=== PATIENT | female | born 1975 | race Caucasian/White ===

== ENCOUNTER 2020-05-08 16:09 | Inpatient (IN) ==
[2020-05-08] MEDS ORDERED: hydrALAZINE 20 MG/1 ML VIAL IV PRN (18:13)
[2020-05-08] MEDS ORDERED: ZALEPLON 5 MG CAPSULE PO PRN (18:13)
[2020-05-08] MEDS ORDERED: DEXTROSE 50% 25 GM/50 ML VIAL IV PRN (18:13)
[2020-05-08] MEDS ORDERED: ACETAMINOPHEN 325 MG TABLET PO PRN (18:13)
[2020-05-08] MEDS ORDERED: NICOTINE 21 MG/24 HR PATCH TRANSDERM PRN (18:13)
[2020-05-08] MEDS ORDERED: guaiFENesin/DM ER 600-30 MG TABLET PO PRN (18:13)
[2020-05-08] MEDS ORDERED: diphenhydrAMINE CAP 25 MG CAPSULE PO PRN (18:13)
[2020-05-08] MEDS ORDERED: PROMETHAZINE 25 MG/1 ML VIAL IM PRN (18:13)
[2020-05-08] MEDS ORDERED: GLUCAGON 1 MG VIAL IM PRN (18:13)
[2020-05-08 18:58] LABS: Basophils # 0.1 10*3/uL (0.0-0.2); Basophils % 1.3 % (0.0-0.8); Eosinophils # 0.5 10*3/uL (0.0-0.87); Eosinophils % 6.2 % (0.00-10.9); Hematocrit 34.3 VOL% (35.7-47.0); Hemoglobin 10.6 GM/DL (12.0-16.0); Immature Granulocytes % 0.3 %; Immature Granulocytes Absolute 0.02 #; Lymphocytes # 1.2 10*3/uL (1.4-4.0); Lymphocytes % 16.2 % (21.3-54.2); Mean Corpuscular HGB Conc 30.9 GM/DL (32-36); Mean Platelet Volume 9.6 FL (9.6-12.0); Monocytes % 6.2 % (1.7-12.7); Neutrophils % 69.8 % (38.7-73.9); Platelet Count 157 T/CUMM (130-400); Red Cell Distribution Width 14.5 % (9.3-17.3); White Blood Count 7.5 T/CUMM (4-12)
[2020-05-08 19:18] LABS: Calcium 9.2 MG/DL (8.5-10.1); Osmolality,Calculated 271.2 MOS/KG (273-304)
[2020-05-08 19:26] LABS: Alanine Aminotransferase < 6 U/L (13-56); Albumin 3.2 G/DL (3.4-5.0); Alkaline Phosphatase 116 U/L (45-117); Aspartate Amino Transferase 10 U/L (0-37); Bilirubin,Indirect 0.2 MG/DL (0.0-1.0); Total Protein 7.1 G/DL (6.4-8.3)
[2020-05-08] MEDS ORDERED: MAGNESIUM HYDROXIDE SUSP 30 ML UDCUP PO PRN (19:45)
[2020-05-08] MEDS ORDERED: MECLIZINE 25 MG TABLET PO PRN (19:45)
[2020-05-08] MEDS ORDERED: POLYETHYLENE GLYCOL POWDER 17 GM PACK PO PRN (19:45)
[2020-05-08] MEDS ORDERED: NITROGLYCERIN SL 0.4 MG TABLET SL PRN (19:45)
[2020-05-08 19:53] LABS: INR 1.1; PT Patient Result 12.1 SECS (9.8-11.9); Partial Thromboplastin Time 32.2 SECS (23.9-33.8)
[2020-05-08] MEDS ORDERED: cefTRIAXone 1,000 MG in SYRINGE 1 EACH IV SCH (20:00)
[2020-05-08] MEDS: ONDANSETRON 4 MG/2 ML VIAL IV PRN (20:35)
[2020-05-08] MEDS: MORPHINE 4 MG/1 ML VIAL IV PRN (20:38)
[2020-05-08] MEDS: GABAPENTIN 100 MG CAPSULE PO SCH (20:39)
[2020-05-08] MEDS: busPIRone 10 MG TABLET PO SCH (20:39)
[2020-05-08] MEDS: carvediloL 25 MG TABLET PO SCH (20:39)
[2020-05-08] MEDS: FERROUS SULFATE 325 MG TABLET PO SCH (20:39)
[2020-05-08] MEDS: metroNIDAZOLE INJ 500 MG in PREMIX 1 EACH IV SCH (20:44)
[2020-05-08] MEDS: INSULIN LISPRO 100 UNIT/ML SUBCUT SCH (21:36)
[2020-05-08] MEDS: INSULIN GLARGINE 100 UNIT/ML SUBCUT SCH (21:36)
[2020-05-09] MEDS: MORPHINE 4 MG/1 ML VIAL IV PRN ×4 (00:17→21:01)
[2020-05-09] MEDS: ONDANSETRON 4 MG/2 ML VIAL IV PRN ×4 (00:18→21:03)
[2020-05-09] MEDS: metroNIDAZOLE INJ 500 MG in PREMIX 1 EACH IV SCH (05:49)
[2020-05-09 05:52] LABS: Basophils # 0.1 10*3/uL (0.0-0.2); Basophils % 1.1 % (0.0-0.8); Eosinophils # 0.4 10*3/uL (0.0-0.87); Eosinophils % 6.8 % (0.00-10.9); Hemoglobin 10.8 GM/DL (12.0-16.0); Immature Granulocytes % 0.2 %; Immature Granulocytes Absolute 0.01 #; Lymphocytes # 1.3 10*3/uL (1.4-4.0); Lymphocytes % 20.3 % (21.3-54.2); Mean Corpuscular HGB Conc 31.8 GM/DL (32-36); Mean Corpuscular Volume 96.3 FL (87-102); Neutrophils % 63.6 % (38.7-73.9); Platelet Count 141 T/CUMM (130-400); Red Blood Count 3.53 MC/CUMM (3.8-5.5); Red Cell Distribution Width 14.5 % (9.3-17.3); White Blood Count 6.2 T/CUMM (4-12)
[2020-05-09 06:32] LABS: Calcium 8.6 MG/DL (8.5-10.1); Osmolality,Calculated 269.4 MOS/KG (273-304)
[2020-05-09] MEDS: INSULIN LISPRO 100 UNIT/ML SUBCUT SCH ×4 (07:44→22:07)
[2020-05-09] MEDS: CALCIUM ACETATE 667 MG CAPSULE PO SCH ×3 (08:32→17:05)
[2020-05-09] MEDS: FUROSEMIDE 40 MG/4 ML VIAL IV SCH ×2 (08:32→16:33)
[2020-05-09] MEDS: SERTRALINE 100 MG TABLET PO SCH (08:33)
[2020-05-09] MEDS: busPIRone 10 MG TABLET PO SCH ×2 (08:33→21:03)
[2020-05-09] MEDS: LEVOTHYROXINE 75 MCG TABLET PO SCH (08:33)
[2020-05-09] MEDS: CLOPIDOGREL 75 MG TABLET PO SCH (08:33)
[2020-05-09] MEDS: carvediloL 25 MG TABLET PO SCH ×2 (08:34→22:07)
[2020-05-09] MEDS: FERROUS SULFATE 325 MG TABLET PO SCH ×3 (08:34→21:03)
[2020-05-09] MEDS: PANTOPRAZOLE 40 MG TABLET PO SCH (08:34)
[2020-05-09] MEDS: CETIRIZINE 10 MG TABLET PO SCH (08:36)
[2020-05-09] MEDS: amLODIPine 2.5 MG TABLET PO SCH (08:49)
[2020-05-09 15:09] LABS: Hepatitis B Core IgM Quant 0.22 Index; Hepatitis B Surface Ag Quant < 0.10 Index; Hepatitis B Surface Ag Result Negative (Negative); Hepatitis C Virus Ab Quant 0.09 Index; Hepatitis C Virus Ab Result Negative (Negative)
[2020-05-09] MEDS: GABAPENTIN 100 MG CAPSULE PO SCH (21:03)
[2020-05-09] MEDS: INSULIN GLARGINE 100 UNIT/ML SUBCUT SCH (22:07)
[2020-05-10] MEDS: ONDANSETRON 4 MG/2 ML VIAL IV PRN ×4 (00:55→20:49)
[2020-05-10 05:16] LABS: Basophils # 0.1 10*3/uL (0.0-0.2); Basophils % 1.3 % (0.0-0.8); Eosinophils # 0.5 10*3/uL (0.0-0.87); Eosinophils % 8.3 % (0.00-10.9); Hematocrit 34.3 VOL% (35.7-47.0); Hemoglobin 10.7 GM/DL (12.0-16.0); Immature Granulocytes % 0.3 %; Immature Granulocytes Absolute 0.02 #; Lymphocytes # 1.1 10*3/uL (1.4-4.0); Lymphocytes % 18.2 % (21.3-54.2); Mean Corpuscular HGB Conc 31.2 GM/DL (32-36); Mean Corpuscular Volume 97.2 FL (87-102); Mean Platelet Volume 9.5 FL (9.6-12.0); Monocytes % 8.4 % (1.7-12.7); Neutrophils % 63.5 % (38.7-73.9); Platelet Count 145 T/CUMM (130-400); Red Blood Count 3.53 MC/CUMM (3.8-5.5); Red Cell Distribution Width 14.4 % (9.3-17.3); White Blood Count 6.1 T/CUMM (4-12)
[2020-05-10 05:32] LABS: Calcium 8.9 MG/DL (8.5-10.1); Osmolality,Calculated 266.4 MOS/KG (273-304)
[2020-05-10] MEDS: INSULIN LISPRO 100 UNIT/ML SUBCUT SCH ×4 (07:26→20:53)
[2020-05-10] MEDS: CALCIUM ACETATE 667 MG CAPSULE PO SCH ×4 (08:03→17:14)
[2020-05-10] MEDS: FUROSEMIDE 40 MG/4 ML VIAL IV SCH ×2 (08:04→15:56)
[2020-05-10] MEDS: LEVOTHYROXINE 75 MCG TABLET PO SCH (08:05)
[2020-05-10] MEDS: MORPHINE 4 MG/1 ML VIAL IV PRN ×3 (08:05→20:50)
[2020-05-10] MEDS: CETIRIZINE 10 MG TABLET PO SCH (08:05)
[2020-05-10] MEDS: amLODIPine 2.5 MG TABLET PO SCH (08:05)
[2020-05-10] MEDS: FERROUS SULFATE 325 MG TABLET PO SCH ×3 (08:05→20:51)
[2020-05-10] MEDS: SERTRALINE 100 MG TABLET PO SCH (08:05)
[2020-05-10] MEDS: busPIRone 10 MG TABLET PO SCH ×2 (08:05→20:51)
[2020-05-10] MEDS: PANTOPRAZOLE 40 MG TABLET PO SCH (08:05)
[2020-05-10] MEDS: CLOPIDOGREL 75 MG TABLET PO SCH (08:05)
[2020-05-10] MEDS: ROSUVASTATIN 20 MG TABLET PO SCH (09:53)
[2020-05-10] MEDS: carvediloL 25 MG TABLET PO SCH ×2 (09:55→20:51)
[2020-05-10] MEDS: GABAPENTIN 100 MG CAPSULE PO SCH (20:53)
[2020-05-10] MEDS: INSULIN GLARGINE 100 UNIT/ML SUBCUT SCH (20:53)
[2020-05-11] MEDS: ONDANSETRON 4 MG/2 ML VIAL IV PRN ×4 (02:48→21:34)
[2020-05-11] MEDS: MORPHINE 4 MG/1 ML VIAL IV PRN (02:48)
[2020-05-11 05:57] LABS: Basophils # 0.1 10*3/uL (0.0-0.2); Basophils % 1.4 % (0.0-0.8); Eosinophils # 0.6 10*3/uL (0.0-0.87); Eosinophils % 9.3 % (0.00-10.9); Hematocrit 33.4 VOL% (35.7-47.0); Hemoglobin 10.4 GM/DL (12.0-16.0); Immature Granulocytes % 0.5 %; Immature Granulocytes Absolute 0.03 #; Lymphocytes # 1.1 10*3/uL (1.4-4.0); Lymphocytes % 17.5 % (21.3-54.2); Mean Corpuscular HGB Conc 31.1 GM/DL (32-36); Mean Corpuscular Volume 97.9 FL (87-102); Mean Platelet Volume 9.7 FL (9.6-12.0); Monocytes % 8.3 % (1.7-12.7); Platelet Count 144 T/CUMM (130-400); Red Blood Count 3.41 MC/CUMM (3.8-5.5); White Blood Count 6.2 T/CUMM (4-12)
[2020-05-11 06:18] LABS: Calcium 8.7 MG/DL (8.5-10.1); Osmolality,Calculated 268.5 MOS/KG (273-304)
[2020-05-11] MEDS: CLOPIDOGREL 75 MG TABLET PO SCH (08:06)
[2020-05-11] MEDS: busPIRone 10 MG TABLET PO SCH ×2 (08:06→21:26)
[2020-05-11] MEDS: LEVOTHYROXINE 75 MCG TABLET PO SCH (08:06)
[2020-05-11] MEDS: amLODIPine 2.5 MG TABLET PO SCH (08:06)
[2020-05-11] MEDS: FUROSEMIDE 40 MG/4 ML VIAL IV SCH ×2 (08:06→16:36)
[2020-05-11] MEDS: CALCIUM ACETATE 667 MG CAPSULE PO SCH ×3 (08:07→16:37)
[2020-05-11] MEDS: FERROUS SULFATE 325 MG TABLET PO SCH ×3 (08:07→21:26)
[2020-05-11] MEDS: PANTOPRAZOLE 40 MG TABLET PO SCH (08:07)
[2020-05-11] MEDS: SERTRALINE 100 MG TABLET PO SCH (08:07)
[2020-05-11] MEDS: CETIRIZINE 10 MG TABLET PO SCH (08:07)
[2020-05-11] MEDS: carvediloL 25 MG TABLET PO SCH ×2 (08:11→21:26)
[2020-05-11] MEDS: INSULIN LISPRO 100 UNIT/ML SUBCUT SCH ×4 (09:01→21:26)
[2020-05-11] MEDS: GABAPENTIN 100 MG CAPSULE PO SCH (21:26)
[2020-05-11] MEDS: INSULIN GLARGINE 100 UNIT/ML SUBCUT SCH (21:27)
[2020-05-12] MEDS: CALCIUM ACETATE 667 MG CAPSULE PO SCH ×2 (07:59→12:55)
[2020-05-12] MEDS: busPIRone 10 MG TABLET PO SCH (08:00)
[2020-05-12] MEDS: FERROUS SULFATE 325 MG TABLET PO SCH ×2 (08:00→17:31)
[2020-05-12] MEDS: amLODIPine 2.5 MG TABLET PO SCH (08:00)
[2020-05-12] MEDS: ROSUVASTATIN 20 MG TABLET PO SCH (08:00)
[2020-05-12] MEDS: PANTOPRAZOLE 40 MG TABLET PO SCH (08:00)
[2020-05-12] MEDS: LEVOTHYROXINE 75 MCG TABLET PO SCH (08:01)
[2020-05-12] MEDS: carvediloL 25 MG TABLET PO SCH (08:01)
[2020-05-12] MEDS: CETIRIZINE 10 MG TABLET PO SCH (08:01)
[2020-05-12] MEDS: SERTRALINE 100 MG TABLET PO SCH (08:01)
[2020-05-12] MEDS: ONDANSETRON 4 MG/2 ML VIAL IV PRN (08:02)
[2020-05-12] MEDS: FUROSEMIDE 40 MG/4 ML VIAL IV SCH ×2 (08:02→17:31)
[2020-05-12] MEDS: INSULIN LISPRO 100 UNIT/ML SUBCUT SCH ×3 (08:02→17:31)
[2020-05-12 13:08] VITALS: BP 146/74
== END 2020-05-12 17:40 | disposition home or self-care (01) | DRG 947 ==
LOC: SUATTDRO 17:41 → N.5E 17:41
PROVIDERS: ADMIT Internal Medicine; ATTEND Internal Medicine

== ENCOUNTER 2021-04-09 07:19 | Observation (INO) ==
[~2021-04-09 07:19] MED LIST: SODIUM CHLORIDE 0.9% 250 ML IV SCH
[2021-04-09] MEDS ORDERED: LIDOCAINE 1%/EPI INJ 20 ML VIAL ONE (07:56)
[2021-04-09] MEDS ORDERED: HEPARIN 5,000 UNIT/1 ML VIAL ONE (07:56)
[2021-04-09] MEDS ORDERED: BUPIVACAINE MPF 0.25% 30 ML VIAL ONE (07:56)
[2021-04-09] MEDS ORDERED: propofoL 200 MG/20 ML VIAL IV ONE (08:21)
[2021-04-09] MEDS ORDERED: fentaNYL 100 MCG/2 ML VIAL ONE (08:21)
[2021-04-09] MEDS ORDERED: LIDOCAINE 2% 5 ML VIAL ONE (08:21)
[2021-04-09] MEDS ORDERED: SODIUM CHLORIDE 0.9% 0 ML IV ONE (08:21)
[2021-04-09 08:47] LABS: Hemoglobin 9.6 GM/DL (12.0-16.0)
[2021-04-09] MEDS ORDERED: HEPARIN LOCK FLUSH 500 UNIT/5 ML SYRINGE IV ONE (09:16)
[2021-04-09] MEDS ORDERED: DOCUSATE SODIUM 100 MG CAPSULE PO PRN (09:34)
[2021-04-09] MEDS ORDERED: ACETAMINOPHEN 325 MG TABLET PO PRN (09:34)
[2021-04-09] MEDS ORDERED: hydrALAZINE 20 MG/1 ML VIAL IV PRN (09:34)
[2021-04-09] MEDS ORDERED: DEXTROSE 50% 25 GM/50 ML VIAL IV PRN (09:34)
[2021-04-09] MEDS ORDERED: ONDANSETRON 4 MG/2 ML VIAL IV PRN (09:34)
[2021-04-09] MEDS ORDERED: GLUCAGON 1 MG VIAL IM PRN (09:34)
[2021-04-09] MEDS ORDERED: NITROGLYCERIN SL 0.4 MG TABLET SL PRN (10:26)
[2021-04-09] MEDS ORDERED: ONDANSETRON ODT 4 MG TABLET PO PRN (10:26)
[2021-04-09] MEDS ORDERED: HEPARIN 10,000 UNIT/10 ML VIAL IV SCH (12:00)
[2021-04-09] MEDS ORDERED: NICOTINE 14 MG/24 HR PATCH TRANSDERM PRN (12:41)
[2021-04-09] MEDS: INSULIN REGULAR 100 UNIT/ML SUBCUT SCH ×3 (14:38→22:20)
[2021-04-09] MEDS: HEPARIN 5,000 UNIT/1 ML VIAL SUBCUT SCH ×2 (15:09→22:20)
[2021-04-09] MEDS: SODIUM ZIRCONIUM CYCLOSILICATE 10 GM PACK PO SCH (15:27)
[2021-04-09 15:32] LABS: Hepatitis B Core IgM Quant 0.11 Index; Hepatitis B Surface Ag Quant < 0.10 Index; Hepatitis B Surface Ag Result Non-Reactive (NonReactive); Hepatitis C Virus Ab Quant 0.09 Index; Hepatitis C Virus Ab Result Non-Reactive (NonReactive)
[2021-04-09] MEDS: carvediloL 25 MG TABLET PO SCH (16:06)
[2021-04-09] MEDS: busPIRone 10 MG TABLET PO SCH (20:49)
[2021-04-09] MEDS: BACLOFEN 10 MG TABLET PO SCH (20:49)
[2021-04-09] MEDS: traZODone 50 MG TABLET PO SCH (20:50)
[2021-04-09] MEDS: DOCUSATE SODIUM 100 MG CAPSULE PO SCH (20:50)
[2021-04-09] MEDS: clonazePAM 0.5 MG TABLET PO SCH (20:50)
[2021-04-09] MEDS: GABAPENTIN 100 MG CAPSULE PO SCH (20:50)
[2021-04-10] MEDS: SODIUM ZIRCONIUM CYCLOSILICATE 10 GM PACK PO SCH ×4 (00:34→20:25)
[2021-04-10 06:03] LABS: Basophils # 0.1 10*3/uL (0.0-0.2); Basophils % 1.1 % (0.0-0.8); Eosinophils # 0.2 10*3/uL (0.0-0.87); Eosinophils % 3.7 % (0.00-10.9); Hematocrit 28.7 VOL% (35.7-47.0); Hemoglobin 9.1 GM/DL (12.0-16.0); Immature Granulocytes % 0.5 %; Immature Granulocytes Absolute 0.03 #; Mean Corpuscular HGB Conc 31.7 GM/DL (32-36); Mean Corpuscular Volume 98.6 FL (87-102); Neutrophils % 67.7 % (38.7-73.9); Platelet Count 169 T/CUMM (130-400); Red Blood Count 2.91 MC/CUMM (3.8-5.5); Red Cell Distribution Width 13.6 % (9.3-17.3); White Blood Count 5.7 T/CUMM (4-12)
[2021-04-10] MEDS: LEVOTHYROXINE 175 MCG TABLET PO SCH (06:12)
[2021-04-10 06:33] LABS: Albumin 3.1 G/DL (3.4-5.0); Bilirubin,Direct 0.2 MG/DL (0.0-0.20); Bilirubin,Indirect 1.8 MG/DL (0.0-1.0); Total Protein 7.1 G/DL (6.4-8.2)
[2021-04-10 06:39] LABS: Calcium 8.3 MG/DL (8.5-10.1); Osmolality,Calculated 270.9 MOS/KG (273-304); Potassium 5.6 MMOL/L (3.5-5.1); Thyroid Stimulating Hormone 2.16 uIU/ml (0.358-3.74)
[2021-04-10 06:41] LABS: Risk Ratio 2.41; VLDL Cholesterol 19.4 MG/DL
[2021-04-10] MEDS: INSULIN REGULAR 100 UNIT/ML SUBCUT SCH ×3 (07:26→17:27)
[2021-04-10] MEDS: clonazePAM 0.5 MG TABLET PO SCH ×2 (08:57→20:23)
[2021-04-10] MEDS: amLODIPine 2.5 MG TABLET PO SCH (08:57)
[2021-04-10] MEDS: GABAPENTIN 100 MG CAPSULE PO SCH ×2 (08:57→20:23)
[2021-04-10] MEDS: lisinopriL 5 MG TABLET PO SCH (08:57)
[2021-04-10] MEDS: SERTRALINE 100 MG TABLET PO SCH (08:57)
[2021-04-10] MEDS: carvediloL 25 MG TABLET PO SCH ×2 (08:57→17:23)
[2021-04-10] MEDS: busPIRone 10 MG TABLET PO SCH ×2 (08:57→20:22)
[2021-04-10] MEDS: DOCUSATE SODIUM 100 MG CAPSULE PO SCH ×2 (08:57→20:23)
[2021-04-10] MEDS: HEPARIN 5,000 UNIT/1 ML VIAL SUBCUT SCH ×2 (10:25→22:26)
[2021-04-10] MEDS: ALBUTEROL 2.5 MG/3 ML NEB RESP TX SCH ×4 (13:58→19:35)
[2021-04-10] MEDS: BACLOFEN 10 MG TABLET PO SCH (20:22)
[2021-04-10] MEDS: traZODone 50 MG TABLET PO SCH (20:22)
[2021-04-11] MEDS: INSULIN REGULAR 100 UNIT/ML SUBCUT SCH ×5 (00:10→21:47)
[2021-04-11] MEDS: ALBUTEROL 2.5 MG/3 ML NEB RESP TX SCH ×3 (00:40→14:36)
[2021-04-11 05:29] LABS: Basophils % 0.5 % (0.0-0.8); Eosinophils # 0.1 10*3/uL (0.0-0.87); Eosinophils % 3.4 % (0.00-10.9); Hematocrit 28.2 VOL% (35.7-47.0); Immature Granulocytes % 0.2 %; Immature Granulocytes Absolute 0.01 #; Lymphocytes # 0.8 10*3/uL (1.4-4.0); Lymphocytes % 19.9 % (21.3-54.2); Mean Corpuscular HGB Conc 31.9 GM/DL (32-36); Mean Corpuscular Volume 96.2 FL (87-102); Mean Platelet Volume 9.7 FL (9.6-12.0); Platelet Count 137 T/CUMM (130-400); Red Blood Count 2.93 MC/CUMM (3.8-5.5); Red Cell Distribution Width 13.4 % (9.3-17.3); White Blood Count 4.2 T/CUMM (4-12)
[2021-04-11] MEDS: LEVOTHYROXINE 175 MCG TABLET PO SCH (05:39)
[2021-04-11 06:00] LABS: Albumin 2.8 G/DL (3.4-5.0); Bilirubin,Total 1.4 MG/DL (0.20-1.00); Calcium 8.3 MG/DL (8.5-10.1); Osmolality,Calculated 266.9 MOS/KG (273-304); Potassium 4.5 MMOL/L (3.5-5.1); Total Protein 6.7 G/DL (6.4-8.2)
[2021-04-11] MEDS ORDERED: LIDOCAINE 1%/EPI INJ 20 ML VIAL ONE (09:35)
[2021-04-11] MEDS ORDERED: BUPIVACAINE MPF 0.25% 30 ML VIAL ONE (09:35)
[2021-04-11] MEDS: GABAPENTIN 100 MG CAPSULE PO SCH ×2 (09:38→20:27)
[2021-04-11] MEDS: DOCUSATE SODIUM 100 MG CAPSULE PO SCH ×2 (09:38→20:27)
[2021-04-11] MEDS: SERTRALINE 100 MG TABLET PO SCH (09:38)
[2021-04-11] MEDS: clonazePAM 0.5 MG TABLET PO SCH ×2 (09:38→20:27)
[2021-04-11] MEDS: busPIRone 10 MG TABLET PO SCH ×2 (09:38→20:26)
[2021-04-11] MEDS: SODIUM ZIRCONIUM CYCLOSILICATE 10 GM PACK PO SCH (09:38)
[2021-04-11] MEDS ORDERED: LIDOCAINE 2% 5 ML VIAL ONE (10:15)
[2021-04-11] MEDS ORDERED: propofoL 200 MG/20 ML VIAL IV ONE (10:15)
[2021-04-11] MEDS ORDERED: ceFAZolin 1,000 MG VIAL ONE (10:34)
[2021-04-11] MEDS ORDERED: fentaNYL 100 MCG/2 ML VIAL ONE (10:44)
[2021-04-11] MEDS ORDERED: SODIUM CHLORIDE 0.9% 250 ML IV ONE (10:44)
[2021-04-11] MEDS ORDERED: MEPERIDINE 25 MG/1 ML VIAL ONE (11:13)
[2021-04-11] MEDS ORDERED: ONDANSETRON 4 MG/2 ML VIAL IV PRN (11:21)
[2021-04-11] MEDS ORDERED: MEPERIDINE 25 MG/1 ML VIAL IV PRN (11:21)
[2021-04-11] MEDS: carvediloL 25 MG TABLET PO SCH ×2 (11:57→17:52)
[2021-04-11] MEDS: amLODIPine 2.5 MG TABLET PO SCH (11:58)
[2021-04-11] MEDS: lisinopriL 5 MG TABLET PO SCH (11:58)
[2021-04-11] MEDS: HEPARIN 5,000 UNIT/1 ML VIAL SUBCUT SCH ×2 (13:10→23:08)
[2021-04-11] MEDS ORDERED: GLUCAGON 1 MG VIAL IM PRN (15:14)
[2021-04-11] MEDS ORDERED: DEXTROSE 50% 25 GM/50 ML VIAL IV PRN (15:14)
[2021-04-11] MEDS: traZODone 50 MG TABLET PO SCH (20:26)
[2021-04-11] MEDS: BACLOFEN 10 MG TABLET PO SCH (20:27)
[2021-04-12] MEDS: ALBUTEROL 2.5 MG/3 ML NEB RESP TX SCH ×3 (00:36→07:06)
[2021-04-12] MEDS: LEVOTHYROXINE 175 MCG TABLET PO SCH (05:30)
[2021-04-12 05:38] LABS: Basophils % 0.7 % (0.0-0.8); Eosinophils # 0.2 10*3/uL (0.0-0.87); Eosinophils % 3.8 % (0.00-10.9); Hemoglobin 8.6 GM/DL (12.0-16.0); Immature Granulocytes % 0.5 %; Immature Granulocytes Absolute 0.02 #; Lymphocytes % 22.6 % (21.3-54.2); Mean Corpuscular HGB Conc 33.1 GM/DL (32-36); Mean Corpuscular Volume 94.9 FL (87-102); Mean Platelet Volume 9.7 FL (9.6-12.0); Monocytes % 10.7 % (1.7-12.7); Neutrophils % 61.7 % (38.7-73.9); Platelet Count 135 T/CUMM (130-400); Red Blood Count 2.74 MC/CUMM (3.8-5.5); Red Cell Distribution Width 13.3 % (9.3-17.3); White Blood Count 4.2 T/CUMM (4-12)
[2021-04-12 06:05] LABS: Calcium 8.5 MG/DL (8.5-10.1); Osmolality,Calculated 270.9 MOS/KG (273-304); Potassium 4.5 MMOL/L (3.5-5.1)
[2021-04-12] MEDS: SERTRALINE 100 MG TABLET PO SCH (08:03)
[2021-04-12] MEDS: GABAPENTIN 100 MG CAPSULE PO SCH (08:04)
[2021-04-12] MEDS: amLODIPine 2.5 MG TABLET PO SCH (08:04)
[2021-04-12] MEDS: clonazePAM 0.5 MG TABLET PO SCH (08:04)
[2021-04-12] MEDS: busPIRone 10 MG TABLET PO SCH (08:04)
[2021-04-12] MEDS: lisinopriL 5 MG TABLET PO SCH (08:05)
[2021-04-12] MEDS: INSULIN REGULAR 100 UNIT/ML SUBCUT SCH ×2 (08:05→11:03)
[2021-04-12] MEDS: carvediloL 25 MG TABLET PO SCH (08:05)
[2021-04-12] MEDS: DOCUSATE SODIUM 100 MG CAPSULE PO SCH (08:05)
[2021-04-12] MEDS: HEPARIN 5,000 UNIT/1 ML VIAL SUBCUT SCH (09:27)
[2021-04-12 10:59] VITALS: BP 133/60
== END 2021-04-12 12:14 ==
LOC: SUATTDRO → N.3E 07:19 → N.OR 07:19 → N.SDSINP 07:21 → N.3E 13:48
PROVIDERS: ADMIT Hospitalist; ATTEND Hospitalist

== ENCOUNTER 2021-08-09 15:13 | Observation (INO) ==
[2021-08-09 17:03] LABS: Basophils % 0.5 % (0.0-0.8); Eosinophils # 0.2 10*3/uL (0.0-0.87); Eosinophils % 2.8 % (0.00-10.9); Hematocrit 25.6 VOL% (35.7-47.0); Hemoglobin 8.4 GM/DL (12.0-16.0); Immature Granulocytes % 0.3 %; Immature Granulocytes Absolute 0.02 #; Lymphocytes % 16.9 % (21.3-54.2); Mean Corpuscular HGB Conc 32.8 GM/DL (32-36); Mean Corpuscular Volume 94.1 FL (87-102); Mean Platelet Volume 9.6 FL (9.6-12.0); Monocytes % 11.1 % (1.7-12.7); Neutrophils % 68.4 % (38.7-73.9); Platelet Count 125 T/CUMM (130-400); Red Blood Count 2.72 MC/CUMM (3.8-5.5); Red Cell Distribution Width 14.6 % (9.3-17.3); White Blood Count 6.2 T/CUMM (4-12)
[2021-08-09 17:25] LABS: INR 1.3; PT Patient Result 14.5 SECS (10.5-12.0); Partial Thromboplastin Time 35.8 SECS (23.8-32.1)
[2021-08-09 17:41] LABS: Albumin 3.1 G/DL (3.4-5.0); Bilirubin,Total 0.6 MG/DL (0.20-1.00); Calcium 8.5 MG/DL (8.5-10.1); Osmolality,Calculated 265.8 MOS/KG (273-304); Potassium 5.3 MMOL/L (3.5-5.1); Total Protein 6.4 G/DL (6.4-8.2)
[2021-08-09] MEDS ORDERED: GLUCAGON 1 MG VIAL IM PRN (18:54)
[2021-08-09] MEDS ORDERED: DEXTROSE 50% 25 GM/50 ML SYRINGE IV PRN (18:58)
[2021-08-09] MEDS ORDERED: SODIUM CHLORIDE 0.9% 1,000 ML IV SCH (19:30)
[2021-08-09] MEDS: MORPHINE 2 MG/1 ML SYRINGE IV PRN (20:49)
[2021-08-09] MEDS: traZODone 50 MG TABLET PO SCH (22:53)
[2021-08-09] MEDS: INSULIN REGULAR 100 UNIT/ML SUBCUT SCH (22:53)
[2021-08-09] MEDS: ATORVASTATIN 40 MG TABLET PO SCH (22:53)
[2021-08-09] MEDS: carvediloL 25 MG TABLET PO SCH (22:54)
[2021-08-10] MEDS: ONDANSETRON 4 MG/2 ML VIAL IV PRN ×2 (00:09→22:32)
[2021-08-10] MEDS: MORPHINE 2 MG/1 ML SYRINGE IV PRN ×3 (01:54→22:33)
[2021-08-10 05:35] LABS: Osmolality,Calculated 278.1 MOS/KG (273-304); Potassium 3.7 MMOL/L (3.5-5.1)
[2021-08-10 05:38] LABS: Calcium 5.6 MG/DL (8.5-10.1)
[2021-08-10] MEDS: LEVOTHYROXINE 175 MCG TABLET PO SCH (05:40)
[2021-08-10 06:16] LABS: Basophils % 0.8 % (0.0-0.8); Eosinophils # 0.2 10*3/uL (0.0-0.87); Eosinophils % 4.4 % (0.00-10.9); Hematocrit 26.3 VOL% (35.7-47.0); Hemoglobin 8.7 GM/DL (12.0-16.0); Immature Granulocytes % 0.6 %; Immature Granulocytes Absolute 0.03 #; Lymphocytes # 0.8 10*3/uL (1.4-4.0); Lymphocytes % 17.5 % (21.3-54.2); Mean Corpuscular HGB Conc 33.1 GM/DL (32-36); Mean Corpuscular Volume 93.9 FL (87-102); Mean Platelet Volume 9.9 FL (9.6-12.0); Monocytes % 11.4 % (1.7-12.7); Neutrophils % 65.3 % (38.7-73.9); Red Cell Distribution Width 14.7 % (9.3-17.3); White Blood Count 4.8 T/CUMM (4-12)
[2021-08-10 06:17] LABS: Platelet Count 117 T/CUMM (130-400)
[2021-08-10] MEDS: INSULIN REGULAR 100 UNIT/ML SUBCUT SCH ×4 (07:30→21:11)
[2021-08-10] MEDS ORDERED: CALCIUM GLUCONATE 1,000 MG in SODIUM CHLORIDE 0.9% 100 ML IV ONE (07:51)
[2021-08-10] MEDS: carvediloL 25 MG TABLET PO SCH ×2 (08:44→21:11)
[2021-08-10] MEDS: CLOPIDOGREL 75 MG TABLET PO SCH (08:44)
[2021-08-10] MEDS: SODIUM BICARBONATE 650 MG TABLET PO SCH ×3 (09:00→21:11)
[2021-08-10] MEDS ORDERED: EPOETIN ALFA-EPBX 2,000 UNIT/ML VIAL IV PRN (14:27)
[2021-08-10] MEDS ORDERED: HEPARIN 10,000 UNIT/10 ML VIAL IV ONE (15:30)
[2021-08-10] MEDS: SEVELAMER CARBONATE 800 MG TABLET PO SCH (18:12)
[2021-08-10] MEDS: traZODone 50 MG TABLET PO SCH (21:11)
[2021-08-10] MEDS: busPIRone 10 MG TABLET PO SCH (21:11)
[2021-08-10] MEDS: BACLOFEN 10 MG TABLET PO SCH (21:11)
[2021-08-10] MEDS: NORTRIPTYLINE 25 MG CAPSULE PO SCH (21:11)
[2021-08-10] MEDS: ATORVASTATIN 40 MG TABLET PO SCH (21:11)
[2021-08-10] MEDS: CALCIUM (CARBONATE)/VITAMIN D 600 MG-400 UNIT TABLET PO SCH (21:11)
[2021-08-10] MEDS: clonazePAM 0.5 MG TABLET PO SCH (21:11)
[2021-08-10] MEDS: GABAPENTIN 100 MG CAPSULE PO SCH (21:11)
[2021-08-10] MEDS: FERROUS SULFATE 325 MG TABLET PO SCH (21:11)
[2021-08-11] MEDS: LEVOTHYROXINE 175 MCG TABLET PO SCH (05:48)
[2021-08-11] MEDS: INSULIN REGULAR 100 UNIT/ML SUBCUT SCH ×4 (07:41→21:38)
[2021-08-11] MEDS: carvediloL 25 MG TABLET PO SCH ×2 (08:15→21:38)
[2021-08-11] MEDS: FERROUS SULFATE 325 MG TABLET PO SCH ×2 (08:16→21:37)
[2021-08-11] MEDS: CHOLECALCIFEROL 1,000 UNIT TABLET PO SCH (08:16)
[2021-08-11] MEDS: SEVELAMER CARBONATE 800 MG TABLET PO SCH ×3 (08:16→17:17)
[2021-08-11] MEDS: clonazePAM 0.5 MG TABLET PO SCH ×2 (08:16→21:37)
[2021-08-11] MEDS: busPIRone 10 MG TABLET PO SCH ×2 (08:16→21:38)
[2021-08-11] MEDS: CALCIUM (CARBONATE)/VITAMIN D 600 MG-400 UNIT TABLET PO SCH ×2 (08:16→21:37)
[2021-08-11] MEDS: SODIUM BICARBONATE 650 MG TABLET PO SCH ×3 (08:16→21:37)
[2021-08-11] MEDS: CLOPIDOGREL 75 MG TABLET PO SCH (08:17)
[2021-08-11] MEDS: CETIRIZINE 10 MG TABLET PO SCH (08:17)
[2021-08-11] MEDS: SERTRALINE 100 MG TABLET PO SCH (08:17)
[2021-08-11] MEDS: POLYETHYLENE GLYCOL POWDER 17 GM PACK PO SCH (08:18)
[2021-08-11] MEDS: MORPHINE 2 MG/1 ML SYRINGE IV PRN ×2 (08:19→21:50)
[2021-08-11] MEDS: ONDANSETRON 4 MG/2 ML VIAL IV PRN ×2 (08:24→21:36)
[2021-08-11] MEDS: GABAPENTIN 100 MG CAPSULE PO SCH (21:37)
[2021-08-11] MEDS: traZODone 50 MG TABLET PO SCH (21:37)
[2021-08-11] MEDS: NORTRIPTYLINE 25 MG CAPSULE PO SCH (21:37)
[2021-08-11] MEDS: ATORVASTATIN 40 MG TABLET PO SCH (21:37)
[2021-08-11] MEDS: BACLOFEN 10 MG TABLET PO SCH (21:38)
[2021-08-12] MEDS: LEVOTHYROXINE 175 MCG TABLET PO SCH (05:38)
[2021-08-12 05:50] LABS: Basophils % 0.4 % (0.0-0.8); Eosinophils # 0.2 10*3/uL (0.0-0.87); Eosinophils % 3.7 % (0.00-10.9); Hemoglobin 8.2 GM/DL (12.0-16.0); Immature Granulocytes % 0.9 %; Immature Granulocytes Absolute 0.04 #; Lymphocytes # 0.9 10*3/uL (1.4-4.0); Lymphocytes % 19.2 % (21.3-54.2); Mean Corpuscular HGB Conc 31.5 GM/DL (32-36); Mean Corpuscular Volume 98.5 FL (87-102); Mean Platelet Volume 10.3 FL (9.6-12.0); Monocytes % 12.4 % (1.7-12.7); Neutrophils % 63.4 % (38.7-73.9); Platelet Count 134 T/CUMM (130-400); Red Blood Count 2.64 MC/CUMM (3.8-5.5); Red Cell Distribution Width 15.1 % (9.3-17.3); White Blood Count 4.6 T/CUMM (4-12)
[2021-08-12 06:16] LABS: Calcium 8.8 MG/DL (8.5-10.1); Osmolality,Calculated 272.2 MOS/KG (273-304); Potassium 5.2 MMOL/L (3.5-5.1)
[2021-08-12] MEDS: INSULIN REGULAR 100 UNIT/ML SUBCUT SCH ×4 (08:54→21:55)
[2021-08-12] MEDS: CALCIUM (CARBONATE)/VITAMIN D 600 MG-400 UNIT TABLET PO SCH ×2 (10:02→21:54)
[2021-08-12] MEDS: SERTRALINE 100 MG TABLET PO SCH (10:02)
[2021-08-12] MEDS: SODIUM BICARBONATE 650 MG TABLET PO SCH ×3 (10:02→21:55)
[2021-08-12] MEDS: CETIRIZINE 10 MG TABLET PO SCH (10:02)
[2021-08-12] MEDS: CHOLECALCIFEROL 1,000 UNIT TABLET PO SCH (10:02)
[2021-08-12] MEDS: FERROUS SULFATE 325 MG TABLET PO SCH ×2 (10:02→21:54)
[2021-08-12] MEDS: SEVELAMER CARBONATE 800 MG TABLET PO SCH ×3 (10:02→17:50)
[2021-08-12] MEDS: carvediloL 25 MG TABLET PO SCH ×2 (10:02→21:54)
[2021-08-12] MEDS: clonazePAM 0.5 MG TABLET PO SCH ×2 (10:03→21:55)
[2021-08-12] MEDS: MORPHINE 2 MG/1 ML SYRINGE IV PRN ×2 (10:03→21:55)
[2021-08-12] MEDS: busPIRone 10 MG TABLET PO SCH ×2 (10:03→21:54)
[2021-08-12] MEDS: ONDANSETRON 4 MG/2 ML VIAL IV PRN (10:04)
[2021-08-12] MEDS: POLYETHYLENE GLYCOL POWDER 17 GM PACK PO SCH (10:05)
[2021-08-12] MEDS: traZODone 50 MG TABLET PO SCH (21:54)
[2021-08-12] MEDS: ATORVASTATIN 40 MG TABLET PO SCH (21:55)
[2021-08-12] MEDS: NORTRIPTYLINE 25 MG CAPSULE PO SCH (21:55)
[2021-08-12] MEDS: GABAPENTIN 100 MG CAPSULE PO SCH (21:55)
[2021-08-12] MEDS: BACLOFEN 10 MG TABLET PO SCH (21:55)
[2021-08-13] MEDS: LEVOTHYROXINE 175 MCG TABLET PO SCH ×2 (06:32→06:39)
[2021-08-13 07:47] VITALS: BP 161/65
[2021-08-13] MEDS: INSULIN REGULAR 100 UNIT/ML SUBCUT SCH (07:56)
[2021-08-13 08:23] LABS: Calcium 9.1 MG/DL (8.5-10.1); Potassium 4.9 MMOL/L (3.5-5.1)
[2021-08-13] MEDS: busPIRone 10 MG TABLET PO SCH (08:25)
[2021-08-13] MEDS: clonazePAM 0.5 MG TABLET PO SCH (08:25)
[2021-08-13] MEDS: CHOLECALCIFEROL 1,000 UNIT TABLET PO SCH (08:25)
[2021-08-13] MEDS: SEVELAMER CARBONATE 800 MG TABLET PO SCH (08:25)
[2021-08-13] MEDS: SERTRALINE 100 MG TABLET PO SCH (08:25)
[2021-08-13] MEDS: SODIUM BICARBONATE 650 MG TABLET PO SCH (08:25)
[2021-08-13] MEDS: CALCIUM (CARBONATE)/VITAMIN D 600 MG-400 UNIT TABLET PO SCH (08:25)
[2021-08-13] MEDS: CETIRIZINE 10 MG TABLET PO SCH (08:25)
[2021-08-13] MEDS: FERROUS SULFATE 325 MG TABLET PO SCH (08:26)
[2021-08-13] MEDS: POLYETHYLENE GLYCOL POWDER 17 GM PACK PO SCH (08:27)
[2021-08-13] MEDS: MORPHINE 2 MG/1 ML SYRINGE IV PRN (09:29)
[2021-08-13] MEDS: carvediloL 25 MG TABLET PO SCH (09:33)
== END 2021-08-13 10:02 ==
LOC: EDUNIT# → EDBD → N.ED 15:13 → N.EDINP 15:13 → N.5E 21:22
PROVIDERS: ADMIT Internal Medicine; ATTEND Internal Medicine

== ENCOUNTER 2022-08-15 12:22 | Observation (INO) ==
[2022-08-15 13:14] LABS: Basophils # 0.1 10*3/uL (0.0-0.2); Basophils % 1.4 % (0.0-0.8); Eosinophils # 0.4 10*3/uL (0.0-0.87); Eosinophils % 5.9 % (0.00-10.9); Hematocrit 36.4 VOL% (35.7-47.0); Hemoglobin 11.5 GM/DL (12.0-16.0); Immature Granulocytes % 0.5 %; Immature Granulocytes Absolute 0.03 #; Lymphocytes # 0.9 10*3/uL (1.4-4.0); Lymphocytes % 15.9 % (21.3-54.2); Mean Corpuscular HGB Conc 31.6 GM/DL (32-36); Mean Corpuscular Volume 96.8 FL (87-102); Mean Platelet Volume 9.4 FL (9.6-12.0); Monocytes # 0.5 10*3/uL (0.11-0.8); Monocytes % 8.3 % (1.7-12.7); Platelet Count 180 T/CUMM (130-400); Red Blood Count 3.76 MC/CUMM (3.8-5.5); Red Cell Distribution Width 16.8 % (9.3-17.3); White Blood Count 5.9 T/CUMM (4-12)
[2022-08-15 13:33] LABS: Albumin 3.3 G/DL (3.4-5.0); Bilirubin,Total 0.4 MG/DL (0.20-1.00); Calcium 9.1 MG/DL (8.5-10.1); Osmolality,Calculated 281.2 MOS/KG (273-304); Potassium 5.4 MMOL/L (3.5-5.1); Total Protein 7.5 G/DL (6.4-8.2)
[2022-08-15 13:58] LABS: INR 1.1; PT Patient Result 11.7 SECS (10.1-12.1); Partial Thromboplastin Time 31.3 SECS (23.7-32.9)
[2022-08-15 14:28] LABS: Barbiturates Screen,Urine Negative (Negative); Benzodiazepines Screen,Urine Negative (Negative); Cannabinoid Screen,Urine Negative (Negative); Opiate Screen,Urine Positive (Negative); Phencyclidine Screen,Urine Negative (Negative)
[2022-08-15] MEDS ORDERED: MEROPENEM 1,000 MG in SODIUM CHLORIDE 0.9% 100 ML IV STA (14:39)
[2022-08-15 14:49] LABS: RBC,Urine 109 /HPF (0-4)
[2022-08-15 14:50] LABS: Bilirubin,Urine Negative (Negative); Blood, Urine Large mg/dL (Negative); Glucose,Urine (UA) Negative (Negative); Ketones,Urine Negative (Negative); Nitrite,Urine Negative (Negative); Protein,Urine >=300 mg/dL (Negative); Urine Appearance Cloudy (Clear); Urine Color Yellow (Yellow); Urine Specific Gravity 1.025 (1.001-1.035); Urine Urobilinogen 0.2 eU/dL (<2.0); Urine pH 7.5 (4.5-8.0)
[2022-08-15] MEDS ORDERED: MEROPENEM 500 MG in SODIUM CHLORIDE 0.9% 100 ML IV STA (15:01)
[2022-08-15] MEDS ORDERED: MAGNESIUM HYDROXIDE SUSP 30 ML UDCUP PO PRN (15:32)
[2022-08-15] MEDS ORDERED: ONDANSETRON ODT 4 MG TABLET PO PRN (15:32)
[2022-08-15] MEDS ORDERED: NITROGLYCERIN SL 0.4 MG TABLET SL PRN (15:32)
[2022-08-15] MEDS ORDERED: POLYETHYLENE GLYCOL POWDER 17 GM PACK PO PRN (15:32)
[2022-08-15] MEDS ORDERED: ACETAMINOPHEN 325 MG TABLET PO PRN (15:32)
[2022-08-15] MEDS ORDERED: cloNIDine 0.1 MG TABLET PO PRN (15:32)
[2022-08-15] MEDS ORDERED: DEXTROSE 50% 25 GM/50 ML VIAL IV PRN (15:43)
[2022-08-15] MEDS ORDERED: DEXTROSE 10% 250 ML BAG IV PRN (15:43)
[2022-08-15] MEDS ORDERED: GLUCAGON 1 MG VIAL IM PRN (15:43)
[2022-08-15] MEDS ORDERED: carvediloL 3.125 MG TABLET PO SCH (17:00)
[2022-08-15] MEDS: SEVELAMER CARBONATE 800 MG TABLET PO SCH (17:52)
[2022-08-15] MEDS ORDERED: hydrALAZINE 20 MG/1 ML VIAL IV PRN (17:53)
[2022-08-15] MEDS: ENOXAPARIN 30 MG/0.3 ML SYRINGE SUBCUT SCH (18:11)
[2022-08-15] MEDS: busPIRone 10 MG TABLET PO SCH (20:15)
[2022-08-15] MEDS: clonazePAM 0.5 MG TABLET PO SCH (20:15)
[2022-08-15] MEDS: carvediloL 3.125 MG TABLET PO SCH (20:15)
[2022-08-15] MEDS: FERROUS SULFATE 325 MG TABLET PO SCH (20:15)
[2022-08-15] MEDS: INSULIN REGULAR 100 UNIT/ML SUBCUT SCH (20:31)
[2022-08-15] MEDS ORDERED: cefTRIAXone 1,000 MG in SODIUM CHLORIDE 0.9% 100 ML IV SCH (21:00)
[2022-08-15] MEDS ORDERED: INSULIN REGULAR 100 UNIT/ML SUBCUT SCH (21:00)
[2022-08-16] MEDS ORDERED: HALOPERIDOL 5 MG/ML AMP IM ONE ×2 (00:42→03:28)
[2022-08-16] MEDS: LEVOTHYROXINE 125 MCG TABLET PO SCH (05:55)
[2022-08-16 06:04] LABS: Basophils # 0.1 10*3/uL (0.0-0.2); Basophils % 1.1 % (0.0-0.8); Eosinophils # 0.2 10*3/uL (0.0-0.87); Eosinophils % 3.8 % (0.00-10.9); Hemoglobin 11.4 GM/DL (12.0-16.0); Immature Granulocytes % 0.6 %; Immature Granulocytes Absolute 0.04 #; Lymphocytes # 0.7 10*3/uL (1.4-4.0); Lymphocytes % 11.4 % (21.3-54.2); Mean Corpuscular HGB Conc 30.8 GM/DL (32-36); Monocytes # 0.5 10*3/uL (0.11-0.8); Monocytes % 7.4 % (1.7-12.7); Neutrophils % 75.7 % (38.7-73.9); Platelet Count 160 T/CUMM (130-400); Red Cell Distribution Width 16.9 % (9.3-17.3); White Blood Count 6.2 T/CUMM (4-12)
[2022-08-16 06:47] LABS: Calcium 8.8 MG/DL (8.5-10.1); Osmolality,Calculated 290.8 MOS/KG (273-304); Potassium 5.8 MMOL/L (3.5-5.1); Thyroid Stimulating Hormone 7.57 uIU/ml (0.358-3.74)
[2022-08-16 08:31] LABS: Free T4 (Free Thyroxine) 0.61 NG/DL (0.76-1.46)
[2022-08-16] MEDS: carvediloL 3.125 MG TABLET PO SCH ×2 (10:16→16:56)
[2022-08-16] MEDS: SEVELAMER CARBONATE 800 MG TABLET PO SCH ×3 (10:17→16:57)
[2022-08-16] MEDS: ASPIRIN EC 81 MG TABLET PO SCH (10:17)
[2022-08-16] MEDS: FERROUS SULFATE 325 MG TABLET PO SCH ×3 (10:17→21:01)
[2022-08-16] MEDS: clonazePAM 0.5 MG TABLET PO SCH ×2 (10:18→21:01)
[2022-08-16] MEDS: INSULIN REGULAR 100 UNIT/ML SUBCUT SCH ×2 (10:18→21:02)
[2022-08-16] MEDS: PANTOPRAZOLE 40 MG TABLET PO SCH (10:19)
[2022-08-16] MEDS: amLODIPine 10 MG TABLET PO SCH (10:19)
[2022-08-16] MEDS: CLOPIDOGREL 75 MG TABLET PO SCH (10:19)
[2022-08-16] MEDS: SODIUM ZIRCONIUM CYCLOSILICATE 10 GM PACK PO SCH ×3 (10:19→21:01)
[2022-08-16] MEDS: SERTRALINE 25 MG TABLET PO SCH (10:20)
[2022-08-16 12:07] LABS: Calcium 9.3 MG/DL (8.5-10.1); Potassium 3.5 MMOL/L (3.5-5.1)
[2022-08-16] MEDS: INSULIN GLARGINE 100 UNIT/ML SUBCUT SCH (13:56)
[2022-08-16] MEDS: busPIRone 10 MG TABLET PO SCH (16:04)
[2022-08-16] MEDS: ENOXAPARIN 30 MG/0.3 ML SYRINGE SUBCUT SCH (17:09)
[2022-08-16] MEDS ORDERED: CEFUROXIME 250 MG TABLET PO SCH (21:00)
[2022-08-17] MEDS: LEVOTHYROXINE 125 MCG TABLET PO SCH (05:52)
[2022-08-17 06:18] LABS: Basophils # 0.1 10*3/uL (0.0-0.2); Basophils % 1.1 % (0.0-0.8); Eosinophils # 0.3 10*3/uL (0.0-0.87); Eosinophils % 4.2 % (0.00-10.9); Hemoglobin 11.3 GM/DL (12.0-16.0); Immature Granulocytes % 1.4 %; Immature Granulocytes Absolute 0.09 #; Lymphocytes # 1.3 10*3/uL (1.4-4.0); Mean Corpuscular HGB Conc 31.4 GM/DL (32-36); Mean Corpuscular Volume 98.9 FL (87-102); Mean Platelet Volume 9.3 FL (9.6-12.0); Monocytes # 0.9 10*3/uL (0.11-0.8); Monocytes % 13.6 % (1.7-12.7); Neutrophils % 59.7 % (38.7-73.9); Platelet Count 209 T/CUMM (130-400); Red Blood Count 3.64 MC/CUMM (3.8-5.5); Red Cell Distribution Width 17.1 % (9.3-17.3); White Blood Count 6.3 T/CUMM (4-12)
[2022-08-17 07:00] LABS: Calcium 8.8 MG/DL (8.5-10.1); Osmolality,Calculated 287.3 MOS/KG (273-304); Potassium 4.2 MMOL/L (3.5-5.1)
[2022-08-17 07:39] VITALS: BP 163/73
[2022-08-17] MEDS: FERROUS SULFATE 325 MG TABLET PO SCH (08:01)
[2022-08-17] MEDS: clonazePAM 0.5 MG TABLET PO SCH (08:01)
[2022-08-17] MEDS: SEVELAMER CARBONATE 800 MG TABLET PO SCH (08:01)
[2022-08-17] MEDS: carvediloL 3.125 MG TABLET PO SCH (08:01)
[2022-08-17] MEDS: PANTOPRAZOLE 40 MG TABLET PO SCH (08:01)
[2022-08-17] MEDS: amLODIPine 10 MG TABLET PO SCH (08:01)
[2022-08-17] MEDS: SERTRALINE 25 MG TABLET PO SCH (08:01)
[2022-08-17] MEDS: ASPIRIN EC 81 MG TABLET PO SCH (08:01)
[2022-08-17] MEDS: SODIUM ZIRCONIUM CYCLOSILICATE 10 GM PACK PO SCH (08:02)
[2022-08-17] MEDS: INSULIN REGULAR 100 UNIT/ML SUBCUT SCH (08:02)
[2022-08-17] MEDS: CLOPIDOGREL 75 MG TABLET PO SCH (08:02)
[2022-08-17] MEDS: INSULIN GLARGINE 100 UNIT/ML SUBCUT SCH (08:02)
== END 2022-08-17 10:57 | disposition swing bed (61) ==
LOC: SUATTDRO → N.EDINP 12:22 → N.ED 12:22 → N.5E 16:48
PROVIDERS: ADMIT Internal Medicine; ATTEND Internal Medicine